=== PATIENT | female | born 1945 | race Caucasian/White ===

== ENCOUNTER → 2016-07-15 | Outpatient (CLI) | payer MEDICARE ==
[~2016-07-15] MED LIST: IOHEXOL 240 MG/ML 50ML VIAL. ONE; IOHEXOL 240 MG/ML 50ML VIAL. PO ONE; IOHEXOL 300 MG/ML 75 ML VIAL. IV ONE
[2016-07-15 14:55] LABS: CREATININE 0.7 mg/dL (0.6-1.0); GFR 82.5
--- NOTE | 2016-07-15 16:06 | RAD ---
CT abdomen and pelvis with IV contrast History: Right lower quadrant pain for one month. Comparison: None. Technique: After administration of oral and intravenous contrast, 75 mL Omnipaque 300, helical CT of the abdomen and pelvis was performed from the lung bases through the ischial tuberosities. Axial, sagittal, and coronal reconstructions were obtained. One or more of the following individualized dose reduction techniques were utilized for the study: Automated exposure control Adjustment of mA and/or kV according to patient's size Use of iterative reconstruction technique. Findings: Images of lower chest demonstrates irregular nodular consolidation left lower lobe measuring 2.0 cm. Small hiatal hernia is seen. Liver, spleen, pancreas, gallbladder, and right adrenal gland are unremarkable. There is mild nodular thickening of left adrenal gland. Bilateral kidneys enhance symmetrically. Superior pole of the right kidney demonstrates 1.1 cm cyst. Right kidney demonstrates additional subcentimeter low-attenuation lesion, too small to characterize. There is no evidence of bowel obstruction. Colonic diverticulosis is noted, but there is no evidence of diverticulitis. No free air or free fluid is identified in the abdomen or pelvis. Appendix appears within normal limits. Urinary bladder is unremarkable. Aortic atherosclerosis is seen. Uterus and adnexa have unremarkable CT appearance. Impression: 1. No acute abnormality identified in the abdomen or pelvis. 2. Small hiatal hernia. 3. 2.0 cm irregular consolidative nodule in the left lower lobe. Further evaluation could be made with a PET/CT versus short-term follow-up CT chest without contrast in 3 months.
== END | disposition home or self-care (01) ==
LOC: CT 14:05
PROVIDERS: ATTEND Family Medicine
DX: I10 Essential (primary) hypertension (principal); K44.9 Diaphragmatic hernia without obstruction or gangrene; I70.0 Atherosclerosis of aorta; R10.31 Right lower quadrant pain
CPT/HCPCS: 36415; 74177; 82565; 84520; Q9966; Q9967